=== PATIENT | male | born 1965 | race Two or more races ===

== ENCOUNTER 2025-04-02 14:46 | Emergency (ER) | payer SELFPAY ==
[~2025-04-02] VITALS: Ht 172.7 cm; Wt 83.0 kg
[2025-04-02 14:54] VITALS: TEMP 98.8; O2SAT 95
[2025-04-02] MEDS: DOXYCYCLINE HYCLATE 100 MG TABLET PO ONE (15:31)
[2025-04-02] MEDS: CEPHALEXIN MONOHYDRATE 500 MG CAPSULE PO ONE (15:31)
[2025-04-02] MEDS: IBUPROFEN 600 MG TABLET PO ONE (15:32)
[2025-04-02] MEDS: POVIDONE-IODINE 10% 15 ML SOLUTION UD TP ONE (15:57)
[2025-04-02] MEDS ORDERED: DOXY100I IV (16:17)
[2025-04-02] MEDS ORDERED: IBUP-1492 PO (16:17)
[2025-04-02] MEDS ORDERED: CEPH-558 PO (16:17)
[2025-04-02 16:40] VITALS: BP 137/73; PULSE 94; RESP 18
== END 2025-04-02 16:58 | disposition home or self-care (01) ==
LOC: EMS 14:47
DX: L02.211 Cutaneous abscess of abdominal wall (principal); L03.311 Cellulitis of abdominal wall
CPT/HCPCS: 99283; 10060; A4247